=== PATIENT | male | born 1950 | race Caucasian/White ===

== ENCOUNTER → 2021-09-24 | Outpatient (CLI) | payer MEDICARE, OTHER ==
[~2021-09-24] MED LIST: LEVOTHYROXINE112 MCG PO; LISINOPRIL10 MG PO; LORATADINE10 MG PO; NORCO 5-325 TA1 EACH PO; SULFAMETHOXAZOLE PO
== END ==
LOC: EXRD 08:12
DX: M54.31 Sciatica, right side (principal); M54.32 Sciatica, left side; M43.16 Spondylolisthesis, lumbar region
CPT/HCPCS: 72100

== ENCOUNTER → 2021-10-07 | Outpatient (CLI) | payer MEDICARE, OTHER | LOC: KOH-I 14:14 | DX: M47.816 Spondylosis without myelopathy or radiculopathy, lumbar region (principal); M43.16 Spondylolisthesis, lumbar region | CPT/HCPCS: 72100 ==

== ENCOUNTER → 2021-10-20 | Outpatient (CLI) | payer MEDICARE, OTHER | LOC: KOH-I 10-09 09:30 | DX: M43.16 Spondylolisthesis, lumbar region (principal); M51.16 Intervertebral disc disorders with radiculopathy, lumbar region; M48.061 Spinal stenosis, lumbar region without neurogenic claudication | CPT/HCPCS: 72148 ==

== ENCOUNTER → 2021-11-10 | Outpatient (CLI) | payer MEDICARE, OTHER | LOC: EXRD 10:29 | DX: G45.3 Amaurosis fugax (principal) | CPT/HCPCS: 93880 ==

== ENCOUNTER → 2022-01-21 | Day surgery (SDC) | payer MEDICARE, OTHER ==
[~2022-01-21] MED LIST changes: +AZELASTIN-FLUTI23 GM; +PROTONIX40 MG PO; +ULTRAM50 MG PO; +VITAMIN D21250 MCG PO; +ZOLOFT50 MG PO
== END | disposition home or self-care (01) ==
LOC: OR 06:09
DX: R10.13 Epigastric pain (principal); N40.0 Benign prostatic hyperplasia without lower urinary tract symptoms; D12.2 Benign neoplasm of ascending colon; K57.30 Diverticulosis of large intestine without perforation or abscess without bleeding; R07.89 Other chest pain; R14.2 Eructation; K21.9 Gastro-esophageal reflux disease without esophagitis; M19.90 Unspecified osteoarthritis, unspecified site; I10 Essential (primary) hypertension; E03.9 Hypothyroidism, unspecified; Z88.5 Allergy status to narcotic agent; Z88.8 Allergy status to other drugs, medicaments and biological substances; Z96.649 Presence of unspecified artificial hip joint; Z96.659 Presence of unspecified artificial knee joint; Z20.822 Contact with and (suspected) exposure to COVID-19
CPT/HCPCS: J2001; J2704; J7120